=== PATIENT | female | born 1995 | race Caucasian/White ===

== ENCOUNTER → 2018-07-10 08:43 | Observation (INO) ==
[2018-07-10 07:57] LABS: Amphetamine Screen,Urine Negative ng/mL (Cutoff=1000); Barbiturate Screen,Urine Negative ng/mL (Cutoff=200)
[2018-07-10 07:58] LABS: Benzodiazepines Screen,Urine Negative ng/mL (Cutoff=300); Cannabinoid Screen,Urine Negative ng/mL (Cutoff = 50); Cocaine Screen,Urine Negative ng/mL (Cutoff= 300); Opiate Screen,Urine Negative ng/mL (Cutoff=300); Phencyclidine Screen,Urine Negative ng/mL (Cutoff=25)
--- NOTE | 2018-07-10 08:36 | OB/GYN Progress Note ---
Date of Encounter: 07/10/18 Time of Encounter: 08:34 - Assessment and Plan (1) 39 weeks gestation of Current Visit: Yes Status: Acute Pooling, fern, nitrazine - negative NST reactive Discharged home with labor precautions Follow up in office as scheduled for care and PRN (2) NST (non-stress test) reactive Current Visit: Yes Status: Acute Subjective - Subjective Principal diagnosis: Rule out ROM Interval history: Ms Rascon is a at 39 weeks and 3 days that presents to triage with c/o increased vaginal discharge that began at 0545 this AM. She states she did have intercourse in the past 24 hours. She has had a normal course. She states an active fetus. She denies headache, visual disturbances, epigastric pain, vaginal discharge, and vaginal bleeding. She states irregular contractions. Antepartum ROS: loss of fluid, movement normal, contractions, no vaginal bleeding Objective - Exam FHR: auscultation normal, category 1 Abdomen: Present: soft, gravid Uterus: Present: normal. Absent: firm, tenderness Comments: VE - FT/thick/high per RN SSE- cervix appears closed, no pooling, no discharge from cervix, normal vaginal discharge, no odor appreciated. Fern - negative Nitrazine - negative
== END | disposition home or self-care (01) ==
LOC: 1NENULAB
PROVIDERS: ADMIT Registered Nurse; ATTEND Registered Nurse

== ENCOUNTER → 2018-07-10 18:08 | Observation (INO) ==
[2018-07-10 16:20] LABS: Amphetamine Screen,Urine Negative ng/mL (Cutoff=1000); Barbiturate Screen,Urine Negative ng/mL (Cutoff=200); Benzodiazepines Screen,Urine Negative ng/mL (Cutoff=200); Cannabinoid Screen,Urine Negative ng/mL (Cutoff = 50); Cocaine Screen,Urine Negative ng/mL (Cutoff= 300); Opiate Screen,Urine Negative ng/mL (Cutoff=300); Phencyclidine Screen,Urine Negative ng/mL (Cutoff=25)
--- NOTE | 2018-07-10 17:35 | OB/GYN Progress Note ---
Date of Encounter: 07/10/18 Time of Encounter: 17:32 - Assessment and Plan (1) 39 weeks gestation of Current Visit: Yes Status: Acute No cervical change NST reactive Offered therapeutic rest, patient declined. Discharge home with labor precautions and kick counts Follow up with routine care as scheduled in the office and PRN (2) NST (non-stress test) reactive Current Visit: Yes Status: Acute Subjective - Subjective Principal diagnosis: Rule out rupture Interval history: Ms Rascon is a at 39 weeks and 3 days that presents to triage with c/o increased vaginal discharge that began at 0545 this AM; she was seen this am in triage and discharged. She states she did have intercourse in the past 24 hours. She has had a normal course. She states an active fetus. She denies headache, visual disturbances, epigastric pain, vaginal discharge, and vaginal bleeding. She states irregular contractions and several more "gushes" of fluid throughout the day with position changes. Antepartum ROS: loss of fluid, movement normal, contractions Objective - Exam FHR: auscultation normal, category 1 FHR comments: Baseline 130 category I tracing. Contractions every 6-8 minutes Abdomen: Present: normal appearance, soft, gravid Uterus: Present: normal. Absent: firm, tenderness Cervical dilation: 1-2 Cervix effacement: 50 station: -2 Comments: Pooling negative, fern negative, and nitrazine negative.
== END | disposition home or self-care (01) ==
LOC: 1NENULAB
PROVIDERS: ADMIT Obstetrics & Gynecology; ATTEND Obstetrics & Gynecology

== ENCOUNTER 2018-07-11 15:55 | Inpatient (IN) ==
[2018-07-11] MEDS ORDERED: Famotidine 20 MG/2 ML VIAL IVP PRN (16:03)
[2018-07-11] MEDS ORDERED: Ondansetron 4 MG/2 ML VIAL IVP PRN (16:03)
[2018-07-11] MEDS ORDERED: *HR* Nalbuphine 10 MG/ML AMPUL IVP PRN (16:03)
[2018-07-11] MEDS ORDERED: Metoclopramide 10 MG/2 ML VIAL IVP PRN (16:03)
[2018-07-11] MEDS ORDERED: Naloxone 0.4 MG/ML INJ IVP PRN (16:03)
[2018-07-11] MEDS ORDERED: Oxytocin 20 units/ LR 1000 mL 20 UNIT/1,000 ML BAG IVC SCH (16:15)
[2018-07-11] MEDS ORDERED: Ringers Solution, Lactated 1,000 ML IVC SCH (16:15)
[2018-07-11] MEDS ORDERED: EPHEDrine 50 MG/ML VIAL IVP PRN (16:25)
[2018-07-11] MEDS ORDERED: Ringers Solution, Lactated 500 ML IVC ONE (16:25)
[2018-07-11] MEDS ORDERED: miSOPROStol 25 MCG TABLET PO ONE (16:30)
[2018-07-11] MEDS ORDERED: Epidural Premix (fent/bupiv) 110 ML EP SCH (16:30)
[2018-07-11 16:55] LABS: Basophils % 0.2 %; Eosinophils % 0.4 %; Hematocrit 34.4 % (35.3-44.9); Hemoglobin 10.9 g/dL (11.5-15.4); Immature Granulocytes % 0.6 % (0-4); Lymphocytes # 1.7 K/mcL (0.6-4.6); Lymphocytes % 16.6 %; Mean Corpuscular HGB Conc 31.7 g/dL (31.6-35.5); Mean Corpuscular Hemoglobin 25.8 pg (28.0-33.3); Mean Corpuscular Volume 81.5 fL (83.0-100.0); Mean Platelet Volume 11.5 fL (9.4-12.4); Monocytes # 0.6 K/mcL (0.0-1.3); Monocytes % 6.3 %; Neutrophils # 7.8 K/mcL (1.6-8.9); Platelet Count 214 K/mcL (140-400); Red Blood Count 4.22 M/mcL (3.82-4.97); Red Cell Distribution Width 15.2 % (11.5-14.5); Segmented Neutrophils % 75.9 %
[2018-07-11 17:08] LABS: Amphetamine Screen,Urine Negative ng/mL (Cutoff=1000); Barbiturate Screen,Urine Negative ng/mL (Cutoff=200); Benzodiazepines Screen,Urine Negative ng/mL (Cutoff=200); Cannabinoid Screen,Urine Negative ng/mL (Cutoff = 50); Cocaine Screen,Urine Negative ng/mL (Cutoff= 300); Opiate Screen,Urine Negative ng/mL (Cutoff=300); Phencyclidine Screen,Urine Negative ng/mL (Cutoff=25)
[2018-07-11] MEDS ORDERED: Lidocaine -MPF 1% 5 ML AMPUL ONE (17:39)
--- NOTE | 2018-07-11 18:17 | OB/GYN History & Physical ---
Date of Encounter: 07/11/18 Time of Encounter: 18:02 Assessment and Plan (1) 39 weeks gestation of Current visit: Yes Status: Acute 23 y/o at 39 weeks 4 days gestation presenting for IOL for EFWT 99% Admit to labor and delivery GBS negative Blood type AB+ Epidural if desired Augmentation as needed Anticipate vaginal delivery Dr. Stanton performance improvement consultant and aware of induction plan (2) NST (non-stress test) reactive Current visit: Yes Status: Acute FHR 125 Moderate variablility +15 by 15 accelerations no decels History of Present Illness Chief complaint: Induction of labor at 39 weeks and 4 days HPI: Ms. Rascon is a 23 year old female presenting for induction of labor. She is at 39 weeks + 4 days gestation. Follows with the midwives. Was at office today with complaint of leakage of fluid and decreased movement and U/S performed and found to have EFWT 99% and JULIO 13 and advised to present to L&D for induction of labor. course uncomplicated. 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 Admits to good movement currently, loss of mucus plug, and leakage of fluid vs discharge as well as contractions. Denies headache, dizziness, vision changes, chest pain, shortness of breath, epigastric pain, RUQ pain, dysuria, or calf pain. 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 ) Psychiatric history: ADHD, depression - Past Surgical History Surgical History: no surgical history - Social History Smoking Status: Never smoker Alcohol use: none Drug use: none - Family History Sister Family Member Ethnicity: Non- Living Status: Age at : 3 Cause of : nonketotoic hyperglycenemia Hx Family Cardiac Disorders: No Hx Family Respiratory Disorders: No Hx Family Cancer: No Hx Family GI Disorders: No Hx Family Endocrine Disorder: Yes Hx Family Neuromuscular Disorders: No Hx Family Neurologic Disorders: No Hx Family HEENT Disorders: No Hx Family Autoimmune Disorders: No Obstetrical History - Pregnancies : 1 Para: 0 Term: 0 : 0 Ab's: 0 Livin - History/Complications History/Complications: Uncomplicated course Medications and Allergies Pnv Cmb#21/Iron/Folic Acid [ Complete Caplet] 1 each PO DAILY 07/08/18 [History] Allergy/AdvReac Type Severity Reaction Status Date / Time Sulfa (Sulfonamide Allergy Hives Verified 07/08/18 16:28 Antibiotics) Review of System OB All systems PM: reviewed and no additional remarkable complaints except as stated Exam - Constitutional Constitutional: well developed, well nourished, no acute distress, average body habitus - HEENT HEENT: Mucus Membranes Moist - Neck Neck exam: trachea midline - Lungs Respiratory exam: CTAB - Cardiovascular Cardiovascular exam: RRR, +S1, +S2 - Breasts Breast: bilateral: normal - Abdomen Abdomen: Present: bowel sounds normal, gravid - Extremities Extremities exam: normal inspection, pedal edema - Vagina Vagina: Present: normal moisture - Cervix Dilation: 1 Effacement: 0 (thick) Station: +4 - Uterus Uterus exam: Present: normal size, normal contour Results Result Diagrams: 07/11/18 16:04 Abnormal lab results Hgb 10.9 g/dL (11.5-15.4) L 07/11/18 16:04 Hct 34.4 % (35.3-44.9) L 07/11/18 16:04 MCV 81.5 fL (83.0-100.0) L 07/11/18 16:04 MCH 25.8 pg (28.0-33.3) L 07/11/18 16:04 RDW 15.2 % (11.5-14.5) H 07/11/18 16:04 All other labs normal. - VTE Reasons for not Prescribing Prophylaxis: Treatment not Indicated - Low risk for VTE
--- NOTE | 2018-07-11 18:39 | OB Labor Progress Note ---
Date of Encounter: 07/11/18 Time of Encounter: 17:30 Labor Progress Note - Subjective Subjective: Patient resting in bed without complaint. She is very nervous about the induction procedure. Reviewed placement of saini balloon for induction and she agrees to proceed. - Vital Signs Vital Signs: WNL, Afebrile - Cervix Cervix: 1/thick/high - Heart Tones Heart Tones: FHR 120 bpm, moderate variability, +15x15 accels, no decelerations - [place]: 2-4 minutes - Interventions Interventions: SVE Placed cervical saini balloon, filled with 30 mL sterile water. Patient tolerated with minimal discomfort. - Plan Plan: Gentle tug to saini hourly until expelled. Consider Pitocin augmentation. AROM when appropriate. Anticipate Dr. Stanton aware of US results from today and plan for induction.
--- NOTE | 2018-07-11 23:41 | OB Labor Progress Note ---
Date of Encounter: 07/11/18 Time of Encounter: 23:38 Labor Progress Note - Subjective Subjective: Patient coping well with contractions. Is interested in an epidural - Vital Signs Vital Signs: WNL - Cervix Cervix: 4-5/50/-3 - Heart Tones Heart Tones: FHR 130 bpm, moderate variability, +15x15 accels, no decelerations. - [place]: q2-4 minutes - Interventions Interventions: SVE When patient laid back for vag exam, SROM for small amount of clear fluid. Nitrazine positive. - Plan Plan: Continue labor management Patient requesting epidural, can have at this time. Initiate Pitocin after epidural placement.
--- NOTE | 2018-07-12 00:18 | Anesthesia Procedures ---
Date of Encounter: 07/12/18 Time of Encounter: 00:16 Procedures: Anesthesia - Epidural/Spinal Patient ID/Chart reviewed: Yes Patient examined: Yes OB Eval: Gestational age: 39.4 OB Eval: : 1 OB Eval: Hx Para: 0 OB Eval: Dilated at (cm): 5 OB Eval: Contractions: Non-stressed pattern Consent Obtained: Yes Supplemental Oxygen: None/Room Air Site Prep: Aseptic Technique, Sterile prep and drape, Povidone-Iodine 1% Patient position: upright Local Anesthetic: Lidocaine 1% Amount of Local Anesthetic used: 3 Touhy Needle Gauge: 18 Touhy Needle Depth (cm): 9 Catheter Depth at Skin (cm): 20 Test Dose (1.5% Lido + Epi): Volume given (mls): 5 Test Dose Result: Negative Loading Dose: Other: 10mls of epidural pharm bag solution Loading Dose Administered: Thru Catheter Infusion Med: 0.125% Bupivacaine w/ 2 mcg/ml Fentanyl Infusion Rate (mls/hr): 16 ([id number]) Catheter Secured in Place: Tegaderm, Tape Interspace Used: L4-L5 Loss of Resistance (ESTEFANI): Yes Blood: No CSF: No Paresthesia: No Procedure: pt tolerated procedure well. no complications. vss. fhr stable.
--- NOTE | 2018-07-12 08:25 | OB Labor Progress Note ---
Date of Encounter: 07/12/18 Time of Encounter: 08:22 Labor Progress Note - Subjective Subjective: Patient comfortable with epidural - Cervix Cervix: 7/80/-2 - Heart Tones Heart Tones: Baseline 140 Moderate variability Accelerations present 15x15 Early decelerations noted FHR Category I - [place]: IUPC with adequate MVUs - Interventions Interventions: SVE Peanut ball - Plan Plan: Continue active management Increase pitocin per protocol Frequent position changes Anticipate Dr. Del Toro marketing communications assistant and available as needed
[2018-07-12] MEDS ORDERED: *HR* Ropivacaine/PF 0.5% 20 ML VIAL ONE (09:03)
--- NOTE | 2018-07-12 11:03 | OB Labor Progress Note ---
Date of Encounter: 07/12/18 Time of Encounter: 10:59 Labor Progress Note - Subjective Subjective: Patient comfortable with epidural - Cervix Cervix: 9/100/-1 - Heart Tones Heart Tones: Baseline 130 Moderate variability Accelerations present 15x15 Early decelerations FHR Category I - [place]: Adequate contractions per IUPC - Interventions Interventions: SVE Position change - Plan Plan: Continue induction management Frequent position changes Anticipate
--- NOTE | 2018-07-12 11:09 | Anesthesia Evaluation PreOp ---
Date of Encounter: 07/12/18 Time of Encounter: 11:06 (completed prior to epidural via Jackie Bazzi CRNA) - Past History Planned Operation: vaginal del, G1 39wk induction Cardiac History: Denies any Significant Hx Pulmonary History: Asthma ALKYLATION OPERATOR History: Other (ADHD) Other Medical History: Denies Any Significant HX Anesthesia History: No Prior Anesthetic Complications, Past Anesthesia (no family hx) Alcohol Use: none Drug use: none Medications and Allergies Pnv Cmb#21/Iron/Folic Acid [ Complete Caplet] 1 each PO DAILY 07/08/18 [History] Allergy/AdvReac Type Severity Reaction Status Date / Time Sulfa (Sulfonamide Allergy Hives Verified 07/08/18 16:28 Antibiotics) Anesthesia Results - Labs 07/11/18 16:04 Anesthesia Exam - HEENT Pupil (Motor): Pupils equal Mallampati: II Teeth: Normal Oral Opening: Greater than 3 - ALKYLATION OPERATOR LOC: Oriented ALKYLATION OPERATOR Motor: Normal RUE, Normal LUE, Normal RLE, Normal LLE, Normal Face ALKYLATION OPERATOR Sensory: Normal: RUE, LUE, RLE, LLE, Face - Cardiac Rhythm: Regular Murmur: None - Pulmonary Breath Sounds: bilateral Clear Respiratory Effort: Symmetrical Anesthesia Assess/Plan ASA Score: 2 Level of consciousness: Cooperative, Oriented Anesthetic Plan: General, Spinal, Epidural Monitoring Plan: Standard Monitors Recovery Plan: PACU
--- NOTE | 2018-07-12 13:25 | OB Labor Progress Note ---
Date of Encounter: 07/12/18 Time of Encounter: 13:23 Labor Progress Note - Subjective Subjective: Patient reports some discomfort with epidural. Requesting anesthesia - Cervix Cervix: 10/100/0 - Heart Tones Heart Tones: FHR category I - [place]: Adequate per IUPC - Interventions Interventions: SAVANA Byrd sit - Plan Plan: Continue induction management Reevaluate in 1 hour Anticipate Plan of care discussed with Dr. Del Toro
--- NOTE | 2018-07-12 15:19 | OB Labor Progress Note ---
Date of Encounter: 07/12/18 Time of Encounter: 15:15 Labor Progress Note - Subjective Subjective: Patient comfortable with epidural - Cervix Cervix: 10/100/0 - Heart Tones Heart Tones: FHR Category I with pushing - [place]: IUPC adequate with contractions - Interventions Interventions: Pushing position changes Peanut ball - Plan Plan: Continue induction management Peanut ball x [address] Del Toro updated Anticipate
--- NOTE | 2018-07-12 18:51 | Event Note ---
Date of Encounter: 07/12/18 Time of Encounter: 18:30 On entering by environmental geologist to check cervix. Patient complete and pushing for 2 and half hours. I was called in to evaluate patient's pelvis. I do feel this patient has an adequate pelvis. Quite a bit of It noted. Tracing is category 1. I do feel this patient deserves some time to push a little bit longer and see if she can bring the baby down. We did mention section if this patient may be does not descend.
--- NOTE | 2018-07-12 18:52 | OB Labor Progress Note ---
Date of Encounter: 07/12/18 Time of Encounter: 18:49 Labor Progress Note - Subjective Subjective: Pt feeling pressure but overall comfortable with epidural. - Cervix Cervix: 10/100/-1 - Heart Tones Heart Tones: FHR Category I - [place]: Contractions adequate with IUPC - Interventions Interventions: Pushing for >2hours without decent of presenting part. Dr. Del Toro called in for evaluation and consultation. Advised one more hour of pushing and then re-evaluate station. - Plan Plan: Continue induction management Push x 1 more hour Reevaluate then Anticipate
--- NOTE | 2018-07-12 21:00 | Event Note ---
Date of Encounter: 07/12/18 Time of Encounter: 20:59 Patient is now been pushing over 4 hours. I was called in by central processing tech to assess patient's cervix. Patient is complete and still -1 station. She has been having adequate contractions and is pushing extremely well. Baby descends but then goes right back to the same position. Patient is been using multiple techniques by central processing tech to help bring baby down. She is been rotated in all positions. She is using a towel to try to help bring the down. I am seeing no descent. This point I am recommending a section. I do not believe it is safe for vaginal delivery. Patient and her and [id number] are discussing with the central processing tech.
[2018-07-12] MEDS ORDERED: Lidocaine/EPI 1:200k 2% PF 20 ML VIAL ONE (21:24)
[2018-07-12] MEDS ORDERED: Ringers Solution, Lactated 1,000 ML ONE (21:32)
[2018-07-12] MEDS ORDERED: *HR* Oxytocin 10 UNIT/ML VIAL IM ONE (21:32)
[2018-07-12] MEDS ORDERED: *HR* Phenylephrine 10 MG/ML VIAL ONE (21:42)
[2018-07-12] MEDS ORDERED: *HR* FentaNYL (PF) 100 MCG/2 ML VIAL ONE ×2 (21:44→22:16)
--- NOTE | 2018-07-12 21:54 | OB Labor Progress Note ---
Date of Encounter: 07/12/18 Time of Encounter: 21:52 Labor Progress Note - Subjective Subjective: Patient now uncomfortable with epidural. - Cervix Cervix: 10/100/-1 - Heart Tones Heart Tones: heart category I - [place]: IUPC adequate - Interventions Interventions: Dr. Del Toro consultation regarding lack of progression and station. Lengthy discussion was had between in himself, myself, patient, , and family. Decision made to proceed with section. - Plan Plan: Care turned over to Dr. Del Toro
[2018-07-12] MEDS ORDERED: *HR* Promethazine 25 MG/ML VIAL IVP PRN (22:10)
[2018-07-12] MEDS ORDERED: *HR* HYDROmorphone (PF) 1 MG/ML SYRINGE IVP PRN ×2 (22:10→23:28)
[2018-07-12] MEDS ORDERED: Acetaminophen IV 1,000 MG/100 ML INFUS..BTL IVPB ONE (22:10)
[2018-07-12] MEDS ORDERED: *HR* Labetalol 20 MG/4 ML SYRINGE IVP PRN (22:10)
[2018-07-12] MEDS ORDERED: Ondansetron 4 MG/2 ML VIAL ONE (22:17)
[2018-07-12] MEDS ORDERED: *HR* Morphine Sulfate/PF 10 MG/10 ML AMPUL ONE (22:33)
--- NOTE | 2018-07-12 22:48 | OB/GYN Procedure Note ---
Section - Date of procedure: 07/12/18 Preop diagnosis: arrest of descent Post-op diagnosis: other Procedure: primary low transverse Surgeon: Isaiah Del Toro Quantitated Blood Loss: 400 Was there an behavioral health assistant present: Yes Engraver Hand Soft Metals: Ashlee Smith Anesthesiologist: Araceli Salazar Curber: Jose Sapp Anesthesia Type: Epidural section complications: none Disposition: Post floor Specimens: Cord blood - (s) A Infant Delivery Date: 07/12/18 Infant Delivery Time: 22:13 Presentation: vertex Position: OP Route of delivery: other Gender: Female Viability: Viable Pounds: 8 Ounces: 13 Gram Weight: 4 kg at 1 minute: 7 at 5 minutes: 9 Shoulder Dystocia: not encountered Placenta: other Cord: 3 umbilical vessels - Narrative Narrative: After informed consent patient was taken to the operating room with an IV in place. Her epidural was bolused. She was then prepped and draped in the usual sterile fashion. Once we were assured of adequate analgesia a Pfannenstiel incision was made and carried sharply through the subtenons fatty tissue until the fascial layers reached. The fascia was then nicked in the midline and incised bilaterally with Gonzales scissors was then dissected vertically for adequate exposure. Rectus abdominis musculature was severed the midline and the peritoneum and then sharply entered and dissected vertically. A bladder blade was placed at the inferior margin incision. Bladder flap was then developed. The bladder blade was placed over the bladder flap and a low transverse incision was then made lower uterine segment. The infant's head was deep in the pelvis and was wedged in. Because this an was placed up through the vagina to push the baby's head up so that the baby could be elevated and delivered. Once this was done the infant's head was delivered and was found to be in her no P presentation. The rest of the was then delivered. The cried upon delivery. Cord was clamped cut. The infant was then passed to nursing in attendance. Cord bloods obtained. The placenta was delivered via uterine massage. The uterus was delivered and uterine lavage was performed. The uterine incision was then closed the Vicryl suture in a running locking fashion. There is excellent hemostasis. Uterus was replaced the pelvic cavity. The pelvic cavity was rinsed thoroughly with sterile water 2. C no bleeding procedure was terminated. Sponge needle and instrument counts correct 2. The fascia was then closed with 0 Vicryl suture running nonlocking fashion. The suprafascial region was rinsed thoroughly with sterile water 2 all bleeders cauterized. The subcutaneous taste tissue is reapproximated with 3-0 Vicryl suture in interrupted fashion. The skin was then closed with 4 Vicryl sutures in particular fashion. Patient tolerated procedure was no blood loss 400 mL
[2018-07-12] MEDS ORDERED: Dexamethasone 4 MG/ML VIAL ONE (22:50)
[2018-07-12] MEDS ORDERED: Sennosides 8.6 MG TABLET PO PRN (22:53)
[2018-07-12] MEDS ORDERED: Metoclopramide 10 MG/2 ML VIAL IVP PRN (22:53)
[2018-07-12] MEDS ORDERED: Ondansetron 4 MG/2 ML VIAL IVP PRN (22:53)
[2018-07-12] MEDS ORDERED: Simethicone 80 MG TAB.CHEW PO PRN (22:53)
[2018-07-12] MEDS ORDERED: Oxytocin 20 units/ LR 1000 mL 20 UNIT/1,000 ML BAG IVC SCH (23:00)
--- NOTE | 2018-07-13 00:35 | Anesthesia Evaluation Post Op ---
Date of Encounter: 07/13/18 Time of Encounter: 00:33 - Vital Signs Vital Signs: vss - Lungs Lungs: Clear Ascult./Percussion - Airway Airway: Non-obstructed - Mental Status Mental Status: Alert & Oriented, Answers Appropriately - Pain Pain Scale used: Kinsey (Faces) - Nausea Vomiting Nausea Vomiting: Not Present - Hydration Hydration: Arias catheter - Discharge PostOp Status: Transfer Patient to floor
[2018-07-13] MEDS ORDERED: Clindamycin 900 MG/50 ML 900 MG/50 ML IV.SOLN IVPB ONE ×2 (00:49→07:42)
[2018-07-13] MEDS ORDERED: Gentamicin 110 MG in 0.9 % Sodium Chloride 100 ML IVPB SCH (01:00)
[2018-07-13 01:06] LABS: Hematocrit 32.5 % (35.3-44.9); Hemoglobin 10.2 g/dL (11.5-15.4); Immature Granulocytes % 0.3 % (0-4); Lymphocytes % 2.8 %; Mean Corpuscular HGB Conc 31.4 g/dL (31.6-35.5); Mean Corpuscular Hemoglobin 25.4 pg (28.0-33.3); Mean Corpuscular Volume 80.8 fL (83.0-100.0); Mean Platelet Volume 10.9 fL (9.4-12.4); Platelet Count 170 K/mcL (140-400); Red Blood Count 4.02 M/mcL (3.82-4.97); Red Cell Distribution Width 15.4 % (11.5-14.5); Segmented Neutrophils % 93.6 %
[2018-07-13 01:07] LABS: Basophils % 0.2 %; Lymphocytes # 0.5 K/mcL (0.6-4.6); Monocytes # 0.6 K/mcL (0.0-1.3); Monocytes % 3.1 %; Neutrophils # 16.9 K/mcL (1.6-8.9)
[2018-07-13] MEDS ORDERED: ceFAZolin 2,000 MG in 0.9 % Sodium Chloride 100 ML IVP SCH ×3 (02:00→06:00)
[2018-07-13] MEDS ORDERED: *HR* Nalbuphine 10 MG/ML AMPUL IV ONE (04:20)
[2018-07-13 06:37] LABS: Basophils % 0.2 %; Hematocrit 30.6 % (35.3-44.9); Hemoglobin 9.5 g/dL (11.5-15.4); Immature Granulocytes % 0.5 % (0-4); Lymphocytes # 0.6 K/mcL (0.6-4.6); Lymphocytes % 3.6 %; Mean Corpuscular Hemoglobin 25.3 pg (28.0-33.3); Mean Corpuscular Volume 81.4 fL (83.0-100.0); Mean Platelet Volume 11.3 fL (9.4-12.4); Monocytes # 0.7 K/mcL (0.0-1.3); Monocytes % 3.8 %; Neutrophils # 16.4 K/mcL (1.6-8.9); Platelet Count 167 K/mcL (140-400); Red Blood Count 3.76 M/mcL (3.82-4.97); Red Cell Distribution Width 15.5 % (11.5-14.5); Segmented Neutrophils % 91.9 %
[2018-07-13] MEDS ORDERED: WATER IVPB ONE (07:25)
[2018-07-13] MEDS ORDERED: D5 IVPB ONE (07:25)
[2018-07-13] MEDS ORDERED: CLINDAMYCIN IVPB ONE (07:25)
[2018-07-13] MEDS: Prenatal Vit/FA 1 EACH TABLET PO SCH (08:06)
[2018-07-13] MEDS: Ibuprofen 600 MG TABLET PO PRN ×2 (08:06→18:32)
--- NOTE | 2018-07-13 10:35 | OB/GYN Progress Note ---
Date of Encounter: 07/13/18 Time of Encounter: 10:32 - Assessment and Plan (1) Status post delivery Current Visit: Yes Status: Acute Patient doing well at 12 hours . States she is very sore. Continue routine postoperative/ care (2) anemia Current Visit: Yes Status: Acute Continue iron as ordered. (3) Breast feeding status of mother Current Visit: Yes Status: Acute support as needed. Subjective - Subjective Patient reports: appetite normal, pain well controlled, no voiding normally (saiin catheter in place) : doing well, nursing well Objective - Vital Signs Latest vital signs: Vital Signs Temp Pulse Resp BP Pulse Ox 07/13/18 07:52 98 F 85 16 109/76 96 07/13/18 04:53 98.5 F 90 16 115/80 96 07/13/18 03:09 98.3 F 89 16 110/78 96 07/13/18 02:26 98.7 F 101 16 117/81 95 07/13/18 01:51 98.9 F 97 16 118/79 96 07/13/18 01:10 98.6 F 88 14 114/79 94 Intake and Output 07/12/18 07/13/18 07/13/18 23:59 07:59 15:59 Intake Total 152.75 / 152.75 Output Total 1450 / 1450 Balance -1297.25 / -1297.25 Intake: IV Fluids 152.75 / 152.75 Cleocin Premix 900 MG/50 ML 900 50 / 50 mg In 50 ml @ 50 mls/hr IVPB ONCE ONE Rx#:[id number] Gentamicin 110 MG In 0.9 % 102.75 / 102.75 Sodium Chloride 100 ML @ 100 mls/hr IVPB Q8H [facility] Rx#: [id number] Oral 0 / 0 Output: Catheter 1450 / 1450 Other: Weight 106 kg Patient Weight 07/13/18 23:59 Weight 106 kg - Exam Lungs: bilateral: normal Chest: Normal S1, Normal S2 Extremities: Present: normal Abdomen: Present: normal appearance, soft Incision: Present: dressed (Dry and intact) Uterus: Present: normal Fundal Height: 1 (u/1) - Labs Labs: Laboratory Results - last 24 hr 07/13/18 07/13/18 07/13/18 00:59 06:16 09:06 WBC 18.0 H D 17.9 H RBC 4.02 3.76 L Hgb 10.2 L 9.5 L Hct 32.5 L 30.6 L MCV 80.8 L 81.4 L MCH 25.4 L 25.3 L MCHC 31.4 L 31.0 L RDW 15.4 H 15.5 H Plt Count 170 167 MPV 10.9 11.3 Immature Gran % 0.3 0.5 Seg Neutrophils % 93.6 91.9 Lymphocytes % 2.8 3.6 Monocytes % 3.1 3.8 Eosinophils % 0.0 0.0 Basophils % 0.2 0.2 Neutrophils # 16.9 H 16.4 H Lymphocytes # 0.5 L 0.6 Monocytes # 0.6 0.7 Eosinophils # 0.0 0.0 Basophils # 0.0 0.0 Gentamicin Trough 1.1
[2018-07-13] MEDS: *HR* OxyCODONE/APAP 5/325 TABLET PO PRN ×2 (10:54→18:32)
[2018-07-13] MEDS: Gentamicin 130 MG in 0.9 % Sodium Chloride 100 ML IVPB SCH ×2 (10:55→18:32)
[2018-07-13] MEDS ORDERED: ceFAZolin 2,000 MG in 0.9 % Sodium Chloride 100 ML IVPB SCH (15:00)
[2018-07-13 22:16] LABS: Basophils % 0.1 %; Eosinophils % 0.1 %; Hematocrit 27.9 % (35.3-44.9); Hemoglobin 8.5 g/dL (11.5-15.4); Immature Granulocytes % 0.8 % (0-4); Lymphocytes # 1.1 K/mcL (0.6-4.6); Lymphocytes % 7.7 %; Mean Corpuscular HGB Conc 30.5 g/dL (31.6-35.5); Mean Corpuscular Hemoglobin 25.3 pg (28.0-33.3); Mean Platelet Volume 10.9 fL (9.4-12.4); Monocytes # 0.6 K/mcL (0.0-1.3); Neutrophils # 12.1 K/mcL (1.6-8.9); Platelet Count 165 K/mcL (140-400); Red Blood Count 3.36 M/mcL (3.82-4.97); Red Cell Distribution Width 15.7 % (11.5-14.5); Segmented Neutrophils % 87.3 %
[2018-07-14] MEDS: *HR* OxyCODONE/APAP 5/325 TABLET PO PRN ×2 (03:05→07:22)
[2018-07-14] MEDS: Ibuprofen 600 MG TABLET PO PRN (03:06)
[2018-07-14 07:55] VITALS: BP 104/65
[2018-07-14] MEDS: Prenatal Vit/FA 1 EACH TABLET PO SCH (08:07)
--- NOTE | 2018-07-14 08:57 | Discharge Summary ---
Date of Encounter: 07/14/18 Time of Encounter: 09:06 - Discharge Diagnosis (1) Status post delivery Priority: Primary Status: Acute Comments: Meeting Post-op milestones. going well, continues to work with nurses and . Incision dry and intact with steri-strips in place. Pain managed by Motrin and Percocet. [facility] report verified. Pt afebrile and vitals stable. Discussed control options and safe spacing; pt declines control at this time. Anticipate discharge today. (2) History of depression Priority: Secondary Status: Acute Comments: Reports good mood. PP depression information given. - Discharge Medications Prescriptions: OxyCODONE/APAP 5/325 [Percocet 5/325 MG] 1 each PO Q4HR PRN 5 Days #30 tablet PRN Reason: Moderate pain 4-6 Ibuprofen [Motrin] 600 mg PO Q6HR PRN #30 tablet PRN Reason: Cramping Docusate [Colace] 100 mg PO BID #60 capsule Ferrous Sulfate 325 mg PO DAILY #30 tablet Home Medications: Pnv Cmb#21/Iron/Folic Acid [ Complete Caplet] 1 each PO DAILY 07/08/18 [History] Breast Pump [BREAST PUMP] 1 each .ROUTE AD #1 each 07/14/18 [Rx] Docusate [Colace] 100 mg PO BID #60 capsule 07/14/18 [Rx] Ferrous Sulfate 325 mg PO DAILY #30 tablet 07/14/18 [Rx] Ibuprofen [Motrin] 600 mg PO Q6HR PRN #30 tablet 07/14/18 [Rx] OxyCODONE/APAP 5/325 [Percocet 5/325 MG] 1 each PO Q4HR PRN 5 Days #30 tablet 07/14/18 [Rx] Simethicone [Gas-X] 80 mg PO TID PRN tab.chew 07/14/18 [Rx] Allergies/Adverse Reactions: Allergy/AdvReac Type Severity Reaction Status Date / Time Sulfa (Sulfonamide Allergy Hives Verified 07/08/18 16:28 Antibiotics) Data Procedures and tests throughout hospitalization: Laboratory Tests 07/11/18 07/11/18 07/13/18 16:04 16:30 00:59 WBC 10.2 18.0 H D RBC 4.22 4.02 Hgb 10.9 L 10.2 L Hct 34.4 L 32.5 L MCV 81.5 L 80.8 L MCH 25.8 L 25.4 L MCHC 31.7 31.4 L RDW 15.2 H 15.4 H Plt Count 214 170 MPV 11.5 10.9 Immature Gran % 0.6 0.3 Seg Neutrophils % 75.9 93.6 Lymphocytes % 16.6 2.8 Monocytes % 6.3 3.1 Eosinophils % 0.4 0.0 Basophils % 0.2 0.2 Neutrophils # 7.8 16.9 H Lymphocytes # 1.7 0.5 L Monocytes # 0.6 0.6 Eosinophils # 0.0 0.0 Basophils # 0.0 0.0 Gentamicin Peak Gentamicin Trough Urine Opiates Screen Negative Ur Barbiturates Screen Negative Ur Phencyclidine Scrn Negative Ur Amphetamines Screen Negative U Benzodiazepines Scrn Negative Urine Cocaine Screen Negative U Marijuana (THC) Screen Negative Ur Drug Screen Interp See Below 07/13/18 07/13/18 07/13/18 06:16 09:06 22:02 WBC 17.9 H 13.9 H RBC 3.76 L 3.36 L Hgb 9.5 L 8.5 L Hct 30.6 L 27.9 L MCV 81.4 L 83.0 MCH 25.3 L 25.3 L MCHC 31.0 L 30.5 L RDW 15.5 H 15.7 H Plt Count 167 165 MPV 11.3 10.9 Immature Gran % 0.5 0.8 Seg Neutrophils % 91.9 87.3 Lymphocytes % 3.6 7.7 Monocytes % 3.8 4.0 Eosinophils % 0.0 0.1 Basophils % 0.2 0.1 Neutrophils # 16.4 H 12.1 H Lymphocytes # 0.6 1.1 Monocytes # 0.7 0.6 Eosinophils # 0.0 0.0 Basophils # 0.0 0.0 Gentamicin Peak Gentamicin Trough 1.1 Urine Opiates Screen Ur Barbiturates Screen Ur Phencyclidine Scrn Ur Amphetamines Screen U Benzodiazepines Scrn Urine Cocaine Screen U Marijuana (THC) Screen Ur Drug Screen Interp 07/14/18 07/14/18 02:09 05:19 WBC RBC Hgb Hct MCV MCH MCHC RDW Plt Count MPV Immature Gran % Seg Neutrophils % Lymphocytes % Monocytes % Eosinophils % Basophils % Neutrophils # Lymphocytes # Monocytes # Eosinophils # Basophils # Gentamicin Peak 0.9 L Gentamicin Trough 1.8 Urine Opiates Screen Ur Barbiturates Screen Ur Phencyclidine Scrn Ur Amphetamines Screen U Benzodiazepines Scrn Urine Cocaine Screen U Marijuana (THC) Screen Ur Drug Screen Interp Labs on day of discharge: Labs from last 24 hours 07/14/18 07/14/18 07/13/18 05:19 02:09 22:02 WBC 13.9 H RBC 3.36 L Hgb 8.5 L Hct 27.9 L MCV 83.0 MCH 25.3 L MCHC 30.5 L RDW 15.7 H Plt Count 165 MPV 10.9 Immature Gran % 0.8 Seg Neutrophils % 87.3 Lymphocytes % 7.7 Monocytes % 4.0 Eosinophils % 0.1 Basophils % 0.1 Neutrophils # 12.1 H Lymphocytes # 1.1 Monocytes # 0.6 Eosinophils # 0.0 Basophils # 0.0 Gentamicin Peak 0.9 L Gentamicin Trough 1.8 07/13/18 09:06 WBC RBC Hgb Hct MCV MCH MCHC RDW Plt Count MPV Immature Gran % Seg Neutrophils % Lymphocytes % Monocytes % Eosinophils % Basophils % Neutrophils # Lymphocytes # Monocytes # Eosinophils # Basophils # Gentamicin Peak Gentamicin Trough 1.1 Date of admission: 07/11/18 15:55 Primary care physician: PCP NONE Discharging clinician: Jahaira Mckinney Anticipated date of discharge: 07/14/18 - Patient Status Disposition: Home, Self-Care Condition: Good Functional capacity at discharge: independent ambulation Overall status at discharge: patient is progressing back to baseline - Discharge Instructions Follow Up With: Honey Cary CNM [Non-Partnered Physician] - NONE,PCP [Primary Care Provider] - Isaiah Del Toro MD [Partnered Physician] - Additional Instructions: Follow-up with Dr. Del Toro at 2 weeks for an incision check. Follow-up with Midwives at 4-6 weeks for appt. - Diet and Activity Activity: increase activity as tolerated Diet: advance to your usual diet Hospital Course Reason for admission: induction of labor Delivery: section Episiotomy: none Laceration: none Other procedures: none complications: none Discharge diagnosis: IUP at term delivered [place] baby: female Hospital course: - Date of procedure: 07/12/18 Preop diagnosis: arrest of descent Post-op diagnosis: other Procedure: primary low transverse Surgeon: Isaiah Ortiz Blood Loss: 400 Was there an hospital nursing assistant present: Yes Roller Helper: Ashlee Smith Anesthesiologist: Araceli Salazar Inspector Purchased Parts: Jose Sapp Anesthesia Type: Epidural section complications: none Disposition: Post floor Specimens: Cord blood - (s) Infant A Delivery Date: 07/12/18 Infant Delivery Time: 22:13 Presentation: vertex Position: OP Route of delivery: other Gender: Female Viability: Viable Pounds: 8 Ounces: 13 Gram Weight: 4 kg at 1 minute: 7 at 5 minutes: 9 Shoulder Dystocia: not encountered Placenta: other Cord: 3 umbilical vessels Time Attestation: Total time spent providing and/or coordinating discharge services: Time Spent: Less than 30 minutes - VTE Reasons for not Prescribing Prophylaxis: Treatment not Indicated - Low risk for VTE Documentation of Mechanical Device: Intermittent pneumatic compression device Exam - Constitutional Vitals: Temp Pulse Resp BP Pulse Ox 98.1 F 102 16 104/65 98 07/14/18 07:40 07/14/18 07:40 07/14/18 07:40 07/14/18 07:40 07/14/18 07:40 General appearance IM: A&O X 3, pleasant, no acute distress - Respiratory Respiratory exam: Present: CTAB - Cardiovascular Cardiovascular exam IM: Present: RRR, +S1, +S2 - GI/Abdominal GI/Abdominal exam IM: normal bowel sounds Incision: normal, dry, intact Additional comments: Steri-strips intact - Uterine Tone: Firm Uterus Position: 1 Finger Below Umbilicus - Extremities Exam Extremities exam IM: Present: normal capillary refill, pedal edema (2+ ). Absent: calf tenderness - Neurological Exam Neurological exam: alert, oriented X3, reflexes normal
== END 2018-07-14 10:00 | disposition home or self-care (01) | DRG 540 ==
LOC: 1NENULAB 15:55 → 1NENUOBS 07-13 01:00
PROVIDERS: ADMIT Obstetrics & Gynecology; ATTEND Obstetrics & Gynecology